=== PATIENT | female | born 1975 | race Hispanic/Latino ===

== ENCOUNTER 2017-05-19 04:00 | Outpatient (CLI) | payer OTHER ==
[~2017-05-19 04:00] MED LIST: ENDOCET 5-3251 EACH PO; IBUPROFEN800 MG PO; NORCO 7.5/321 TABLET PO
[2017-05-19 04:37] VITALS: BP 114/74
[2017-05-19] MEDS ORDERED: PRENATAL TABLE1 EAC3 PO (05:18)
== END 2017-05-19 05:29 | disposition home or self-care (01) ==
LOC: LDRP-OP 04:00 → 2WEST 04:01 → LDRP-OP 08-10 13:17
DX: O36.8130 Decreased fetal movements, third trimester, not applicable or unspecified (principal); Z3A.36 36 weeks gestation of pregnancy; O09.523 Supervision of elderly multigravida, third trimester; O34.219 Maternal care for unspecified type scar from previous cesarean delivery
CPT/HCPCS: 59025; G0378

== ENCOUNTER 2017-05-19 17:13 | Inpatient (IN) | payer OTHER ==
[~2017-05-19] VITALS: Ht 160 cm; Wt 85.5 kg
[~2017-05-19 17:13] MED LIST changes: +PRENATAL TABLE1 EAC3 PO
[2017-05-19 17:41] VITALS: BP 113/72
[2017-05-19 18:02] LABS: BASOPHIL (%) 0.2 % (0-1); EOSINOPHIL (%) 0.5 % (0-5); EOSINOPHIL COUNT 0.1 K/uL (0-0.3); HEMATOCRIT 35.4 % (36.0-46.0); HEMOGLOBIN 12.3 G/DL (11.9-15.5); IMMATURE GRANULOCYTE (%) 0.5 % (0.0-0.7); LYMPHOCYTE COUNT 1.9 K/uL (1.0-2.8); MCH 30.4 PG (29.0-34.0); MCHC 34.7 G/DL (30.0-36.0); MCV 87.4 FL (83-99); MONOCYTE (%) 5.6 % (3-12); MONOCYTE COUNT 0.6 K/uL (0-0.8); NEUTROPHIL (%) 74.2 % (45-76); NEUTROPHIL COUNT 7.6 K/uL (1.8-6.4); PLATELET COUNT 267 K/uL (156-360); RBC DIS.WIDTH-CV 13.4 % (11.8-14.6); RBC DIS.WIDTH-SD 42.9 % (39-53); RED BLOOD COUNT 4.05 M/uL (3.80-5.20); WHITE BLOOD COUNT 10.2 K/uL (4.1-10.2)
[2017-05-19 18:26] LABS: ALBUMIN 3.4 g/dL (3.2-4.8); CHLORIDE 111 mEq/L (99-109); SODIUM 135 mEq/L (136-147)
[2017-05-19 18:29] LABS: GLUCOSE 93 mg/dL (70-99); TOTAL PROTEIN 6.8 g/dL (6.4-8.3)
[2017-05-19 18:31] LABS: TOTAL BILIRUBIN 0.2 mg/dL (0.0-1.0)
[2017-05-19 18:32] LABS: ALKALINE PHOSPHATASE 179 IU/L (3-129)
[2017-05-19 18:33] LABS: CREATININE 0.6 mg/dL (0.6-1.3); GFR ESTIMATE (CALCULATED) > 59 mL/min/
[2017-05-19 18:34] LABS: AST (GOT) 25 IU/L (2-34); UREA NITROGEN (BUN) 10 mg/dL (9-23)
[2017-05-19 18:35] LABS: ALT (GPT) 18 IU/L (3-49)
[2017-05-19 19:08] VITALS: BP 124/72
[2017-05-19 23:42] VITALS: BP 122/62
[2017-05-20] VITALS (7 sets, daily range): BP systolic 105–113; BP diastolic 58–67
[2017-05-20 00:17] LABS: AMPHETAMINE NEGATIVE (500 ng/mL); BARBITURATES NEGATIVE (200 ng/mL); BENZODIAZEPINES NEGATIVE (150 ng/mL); BUPRENORPHINE NEGATIVE (10 ng/mL); COCAINE NEGATIVE (150 ng/mL); METHADONE NEGATIVE (200 ng/mL); METHAMPHETAMINE NEGATIVE (500 ng/mL); OPIATES (MORPHINE) NEGATIVE (100 ng/mL); OXYCODONE NEGATIVE (100 ng/mL); PHENCYCLIDINE NEGATIVE (25 ng/mL); PROPOXYPHENE NEGATIVE (300 ng/mL); THC CANNABINOIDS NEGATIVE (50 ng/mL); TRICYCLIC ANTIDEPRESSANTS NEGATIVE (300 ng/mL)
[2017-05-21 02:26] VITALS: BP 93/53
[2017-05-21 07:46] VITALS: BP 100/65
[2017-05-21 07:57] LABS: BASOPHIL (%) 0.1 % (0-1); EOSINOPHIL (%) 0 % (0-5); HEMATOCRIT 30.4 % (36.0-46.0); HEMOGLOBIN 10.3 G/DL (11.9-15.5); IMMATURE GRANULOCYTE (%) 0.9 % (0.0-0.7); LYMPHOCYTE (%) 7.8 % (15-42); LYMPHOCYTE COUNT 1.5 K/uL (1.0-2.8); MCH 29.9 PG (29.0-34.0); MCHC 33.9 G/DL (30.0-36.0); MCV 88.4 FL (83-99); MONOCYTE (%) 5.6 % (3-12); MONOCYTE COUNT 1.1 K/uL (0-0.8); NEUTROPHIL (%) 85.6 % (45-76); NEUTROPHIL COUNT 16.8 K/uL (1.8-6.4); PLATELET COUNT 263 K/uL (156-360); RBC DIS.WIDTH-CV 13.5 % (11.8-14.6); RED BLOOD COUNT 3.44 M/uL (3.80-5.20); WHITE BLOOD COUNT 19.6 K/uL (4.1-10.2)
[2017-05-21 11:10] VITALS: BP 94/59
[2017-05-21 14:43] VITALS: BP 98/70
[2017-05-22 07:09] VITALS: BP 107/61
[2017-05-22] MEDS ORDERED: ENDOCET 5-3251 EACH PO (10:53)
[2017-05-22] MEDS ORDERED: MOTRIN800 MG PO (10:53)
[2017-05-22 11:35] VITALS: BP 117/70
== END 2017-05-22 16:06 | disposition home or self-care (01) | DRG 766 ==
LOC: LDRP-OP 17:13 → 2WEST 17:15 → LDRP-OP 07-10 05:47
PROVIDERS: Obstetrics & Gynecology
DX: O41.03X0 Oligohydramnios, third trimester, not applicable or unspecified (principal); O32.8XX0 Maternal care for other malpresentation of fetus, not applicable or unspecified; O24.429 Gestational diabetes mellitus in childbirth, unspecified control; O99.214 Obesity complicating childbirth; E66.9 Obesity, unspecified; P03.4 Newborn affected by Cesarean delivery; O34.211 Maternal care for low transverse scar from previous cesarean delivery; Z68.30 Body mass index [BMI] 30.0-30.9, adult; Z3A.37 37 weeks gestation of pregnancy; Z37.0 Single live birth; Z30.2 Encounter for sterilization; Z81.1 Family history of alcohol abuse and dependence; Z82.5 Family history of asthma and other chronic lower respiratory diseases; Z91.14 Patient's other noncompliance with medication regimen
CPT/HCPCS: 80053; 82948; 85025; 86850; 86900; 86901; 88302; 88307; 90686; G0378; J0171; J0690; J0702; J1200; J1885; J2210; J2274; J2405; J7120